=== PATIENT | male | born 1995 ===

== ENCOUNTER 2018-04-25 19:58 | Emergency (ER) | payer BC ==
[2018-04-25] MEDS ORDERED: Sodium Chloride 0.9% 1,000 ML IV STA ×2 (20:55→22:29)
[2018-04-25 21:21] LABS: VENOUS BLOOD GAS BASE EXCESS -2.3 mmol/L (0.0-2.0); VENOUS BLOOD GAS PCO2 33 mmHg (40-60); VENOUS BLOOD GAS PO2 72 mm/Hg (30-55); VENOUS BLOOD PH 7.42 (7.32-7.43)
[2018-04-25 21:32] LABS: BASO # 0.1 K/uL (0.0-0.2); BASO % 0.6 % (0.0-2.0); EOS # 0.1 K/uL (0.0-0.7); EOS % 0.4 % (0.0-4.0); HEMOGLOBIN 17.4 g/dL (12.0-18.0); LYMPH # 2.7 K/uL (1.0-4.3); LYMPH % 14.2 % (20.0-40.0); MEAN CELL VOLUME 87.7 fl (80.0-94.0); MEAN CORPUSCULAR HEMOGLOBIN 30.7 pg (27.0-31.0); MEAN CORPUSCULAR HGB CONC 35.1 g/dL (33.0-37.0); MEAN PLATELET VOLUME 7.6 fl (7.2-11.7); MONO # 1.4 K/uL (0.0-0.8); MONO % 7.4 % (0.0-10.0); NEUT # 14.7 K/uL (1.8-7.0); NEUT % 77.4 % (50.0-75.0); NRBC % 0.1 % (0.0-0.0); RBC 5.66 Mil/uL (4.40-5.90); RED CELL DISTRIBUTION WIDTH 13.3 % (11.5-14.5)
[2018-04-25 21:43] LABS: ALB/GLOB RATIO 1.3 (1.0-2.1); ALBUMIN 5.1 g/dL (3.5-5.0); ALT/SGPT 136 U/L (21-72); AST/SGOT 63 U/L (17-59); BLOOD UREA NITROGEN 13 mg/dl (9-20); CALCIUM 10.5 mg/dL (8.4-10.2); GFR NON-AFRICAN AMERICAN > 60; LIPASE 55 U/L (23-300)
[2018-04-25 21:44] LABS: PROTHROMBIN TIME 11.6 Seconds (9.8-13.1)
[2018-04-25 21:47] LABS: PARTIAL THROMBOPLASTIN TIME 34.5 Seconds (25.6-37.1)
--- NOTE | 2018-04-25 22:00 | ED PDOC ---
HPI: Abdomen Time Seen by Provider: 04/25/18 20:41 Chief Complaint (Nursing): Abdominal Pain History/Exam Limitations: no limitations Onset/Duration Of Symptoms: Hrs Outside of [place] travel?: No Current Symptoms Are (Timing): Still Present Severity: Moderate Pain Scale Rating Of: 7 Location Of Pain/Discomfort: Epigastric Quality Of Discomfort: Sharp Associated Symptoms: Vomiting (with blood) Exacerbating Factors: None Alleviating Factors: None Last Bowel Movement: Today Additional Complaint(s): 22 yo M with h/o alcoholism presents with epigastric abd pain and vomiting with blood. PT states he was feeling nauseas today and noticed that his heart rate monitor on his watch was showing a HR of 115 throughout the day. Pt states while working out, he vomited and there was bright red blood. Later in the evening, he had a second episode of hematemesis associated with severe epigastric pain. Pt had a full medical workup one month ago that showed no abnormalities. Last drink was this morning. Pt now tolerating PO. Pt is in [place] for a work conference and lives in [place]. Past Medical History Vital Signs: Last Vital Signs Temp 97.4 F L 04/25/18 20:17 Pulse 134 H 04/25/18 20:17 Resp 18 04/25/18 20:17 BP 160/111 H 04/25/18 20:17 Pulse Ox 99 04/25/18 20:17 - Medical History PMH: No Chronic Diseases - Family History Family History: States: Unknown Family Hx - Living Arrangements Living Arrangements: Alone - Social History Current smoker - smoking cessation education provided: No Alcohol: > 2 Drinks/Day - Home Medications Home Medications: Ambulatory Orders Medication Instructions Recorded Metoclopramide HCl [Reglan] 5 mg PO BID #12 tablet 04/25/18 Pantoprazole [Protonix EC Tab] 40 mg PO DAILY #30 ect 04/25/18 - Allergies Allergies/Adverse Reactions: Allergies Allergy/AdvReac Type Severity Reaction Status Date / Time Penicillins Allergy ANAPHYLAXIS Verified 04/25/18 20:16 Review of Systems ROS Statement: Except As Marked, All Systems Reviewed And Found Negative Constitutional: Negative for: Fever, Chills, Sweats Cardiovascular: Negative for: Chest Pain, Palpitations Respiratory: Negative for: Cough, Shortness of Breath, Hemoptysis Gastrointestinal: Positive for: Nausea, Vomiting, Abdominal Pain, Hematemesis. Negative for: Diarrhea, Constipation, Rectal Pain Genitourinary Male: Negative for: Dysuria Skin: Negative for: Rash Neurological: Negative for: Weakness, Numbness Physical Exam - Reviewed Vital Signs Reviewed: Yes - Physical Exam Appears: Positive for: Uncomfortable Head Exam: Positive for: ATRAUMATIC, NORMAL INSPECTION, NORMOCEPHALIC Skin: Positive for: Normal Color, Warm, Dry. Negative for: Cyanosis Eye Exam: Positive for: Normal appearance Neck: Positive for: Normal Cardiovascular/Chest: Positive for: Regular Rate, Rhythm (tachycardic), Chest Non Tender Respiratory: Positive for: Normal Breath Sounds Pulses-Radial (L): 2+ Pulses-Radial (R): 2+ Gastrointestinal/Abdominal: Positive for: Soft, Tenderness (epigastric) Back: Positive for: Normal Inspection - Laboratory Results Result Diagrams: 04/25/18 21:27 04/25/18 21:27 - ECG O2 Sat by Pulse Oximetry: 99 Medical Decision Making Medical Decision Makin yo M with hematemasis and epigastric abdominal pain. Workup for PUD/UGIB -labs -upright chest xray -EKG -IV fluids -Morphine for pain -Reassess pt 11:13pm Pt with improved symptoms. No new episodes of vomiting and tolerating PO. Improved pain. Labs show elevated lactate and was given 2 L of IV fluids. Pt given rx for Protonix and advised to take Tylenol for pain. Pt advised to return if symptoms worsen. Pt will follow up with PMD in [place]. Disposition - Clinical Impression Clinical Impression: Peptic ulcer disease - Disposition Disposition Time: 23:17 Condition: IMPROVED Additional Instructions: Increase intake of fluids. Avoid alcohol, spicy foods, and high acidity foods/drinks. Take medications as prescribed. Follow up with PMD for futher workup. Return to the emergency department if symptoms return. Prescriptions: Metoclopramide HCl [Reglan] 5 mg PO BID #12 tablet Pantoprazole [Protonix EC Tab] 40 mg PO DAILY #30 ect Forms: [employer] (Uzbek) Print Language: SINHALA
[2018-04-25 23:41] VITALS: BP 131/82; PULSE 91; RESP 17; TEMP 98.6; O2SAT 100
--- NOTE | 2018-04-26 10:33 | RAD ---
HISTORY: Evaluate pneumoperitoneum COMPARISON: No prior. TECHNIQUE: Chest PA and lateral FINDINGS: LINES AND TUBES: None. LUNG AND PLEURA: The lungs are well inflated and clear. No pleural effusion or pneumothorax. HEART AND MEDIASTINUM: The heart is not enlarged. The hilar and mediastinal contours are within normal limits. SKELETAL STRUCTURES: The bony structures are within normal limits for the patient's age. VISUALIZED UPPER ABDOMEN: Normal. OTHER FINDINGS: No free intraperitoneal air. IMPRESSION: No active pulmonary disease. No free intraperitoneal air.
--- NOTE | 2018-04-26 15:15 | CARD ---
APPROVED REPORT Date of service: 04/25/2018 EKG Measurement Heart [id number] <Conclusion> Sinus tachycardia Otherwise normal ECG
== END 2018-04-25 23:41 | disposition home or self-care (01) ==
LOC: H.ER 19:58
DX: K27.9 Peptic ulcer, site unspecified, unspecified as acute or chronic, without hemorrhage or perforation (principal); Z88.0 Allergy status to penicillin
CPT/HCPCS: 71046; 80053; 82803; 83690; 83735; 84100; 85025; 85610; 85730; 86850; 86900; 93005; 96374; 96375; 99283; C9113; J2270; J2405; J7030